=== PATIENT | male | born 1955 | race Caucasian/White ===

== ENCOUNTER 2022-05-30 05:50 | Day surgery (SDC) | payer MEDICARE, OTHER ==
[~2022-05-30 05:50] MED LIST: Sodium Chloride 0.9% 10 ML Syringe FLUSH SCH
[2022-05-30] MEDS ORDERED: fentaNYL 100 MCG/2 ML SDV IV ONE ×3 (05:51→06:59)
[2022-05-30] MEDS ORDERED: Midazolam 1 MG/ML 2 ML SDV IV ONE ×4 (05:51→07:05)
[2022-05-30] MEDS ORDERED: Sodium Chloride 0.9% 10 ML Syringe FLUSH PRN (06:00)
[2022-05-30] MEDS ORDERED: Dextrose 5%-0.45% NaCl 1,000 ML IV SCH (06:00)
[2022-05-30] MEDS ORDERED: Midazolam 1 MG/ML 2 ML SDV ONE (06:19)
[2022-05-30] MEDS ORDERED: fentaNYL 100 MCG/2 ML SDV ONE (06:20)
[2022-05-30 08:33] VITALS: PULSE 77
[2022-05-30 09:02] VITALS: BP 146/84
== END 2022-05-30 09:27 | disposition home or self-care (01) ==
LOC: DL.ENDO 05:50
PROVIDERS: ATTEND Internal Medicine Gastroenterology
DX: Z12.11 Encounter for screening for malignant neoplasm of colon (principal); D12.5 Benign neoplasm of sigmoid colon; K64.8 Other hemorrhoids; K57.30 Diverticulosis of large intestine without perforation or abscess without bleeding; E66.09 Other obesity due to excess calories; G47.33 Obstructive sleep apnea (adult) (pediatric); Z91.013 Allergy to seafood; Z91.041 Radiographic dye allergy status; Z98.890 Other specified postprocedural states; Z68.41 Body mass index [BMI] 40.0-44.9, adult
CPT/HCPCS: 45385; J2250; J3010; J7042

== ENCOUNTER 2022-06-06 06:21 | Emergency (ER) | payer MEDICARE, OTHER ==
[2022-06-06 06:39] VITALS: BP 189/96; PULSE 94
[2022-06-06] MEDS ORDERED: Albuterol/Ipratropium 3.0-0.5 MG/3 ML Neb Soln NEB ONE ×2 (06:40→08:00)
[2022-06-06] MEDS ORDERED: methylPREDNISolone Sodium Succinate 125 MG/2 ML SDV IVPUSH ONE (06:40)
[2022-06-06] MEDS ORDERED: Sodium Chloride 0.9% 10 ML Syringe FLUSH PRN (06:40)
[2022-06-06 07:35] LABS: CORONAVIRUS COVID-19 NAA NEGATIVE (NEGATIVE); RESPIRATORY SYNCYTIAL VIR NAA NEGATIVE (NEGATIVE)
== END 2022-06-06 08:23 | disposition home or self-care (01) ==
LOC: DL.ED 06:21
DX: J45.909 Unspecified asthma, uncomplicated (principal); G47.33 Obstructive sleep apnea (adult) (pediatric); E78.00 Pure hypercholesterolemia, unspecified; I10 Essential (primary) hypertension; I25.2 Old myocardial infarction; M19.90 Unspecified osteoarthritis, unspecified site; E66.9 Obesity, unspecified; Z68.37 Body mass index [BMI] 37.0-37.9, adult; Z91.013 Allergy to seafood; Z88.8 Allergy status to other drugs, medicaments and biological substances; Z79.82 Long term (current) use of aspirin; Z79.02 Long term (current) use of antithrombotics/antiplatelets; Z79.899 Other long term (current) drug therapy; Z20.822 Contact with and (suspected) exposure to COVID-19
CPT/HCPCS: 0241U; 36415; 71045; 80053; 83880; 84484; 85025; 85379; 86140; 93005; 96374; 99285-25; J2930; J7620-GY

== ENCOUNTER 2022-08-13 18:48 | Emergency (ER) | payer MEDICARE, OTHER ==
[2022-08-13] MEDS ORDERED: Albuterol/Ipratropium 3.0-0.5 MG/3 ML Neb Soln ONE (18:53)
[2022-08-13] MEDS ORDERED: methylPREDNISolone Sodium Succinate 125 MG/2 ML SDV IVPUSH ONE (18:55)
[2022-08-13] MEDS ORDERED: Magnesium Sulfate/Water 2 GM in Premix Bag 1 BAG IV ONE (18:55)
[2022-08-13] MEDS ORDERED: Albuterol/Ipratropium 3.0-0.5 MG/3 ML Neb Soln NEB ONE (18:55)
[2022-08-13] MEDS ORDERED: Magnesium Sulfate/Water 50 ML ONE (18:59)
[2022-08-13] MEDS ORDERED: methylPREDNISolone Sodium Succinate 125 MG/2 ML SDV ONE (18:59)
[2022-08-13] MEDS ORDERED: Sodium Chloride 0.9% 10 ML Syringe FLUSH PRN (19:04)
[2022-08-13 19:34] LABS: ANION GAP 15.4 mEq/L (7-13); CHLORIDE,CL 102 mmol/L (98-107); SODIUM,NA 139 mmol/L (136-145)
[2022-08-13 19:37] LABS: ESTIMATED GFR 74 mL/min (>=60)
[2022-08-13] MEDS ORDERED: fentaNYL 100 MCG/2 ML SDV IVPUSH ONE (20:14)
[2022-08-13] MEDS ORDERED: levETIRAcetam in NaCl (iso-os) 1,500 MG in Premix Bag 1 BAG IV ONE ×2 (20:27)
[2022-08-13 22:30] VITALS: BP 133/83; PULSE 92
== END 2022-08-13 21:31 ==
LOC: DL.ED 18:48
DX: S06.1XAA Traumatic cerebral edema with loss of consciousness status unknown, initial encounter (principal); S27.0XXA Traumatic pneumothorax, initial encounter; I25.10 Atherosclerotic heart disease of native coronary artery without angina pectoris; M19.90 Unspecified osteoarthritis, unspecified site; I25.2 Old myocardial infarction; E66.9 Obesity, unspecified; Z68.41 Body mass index [BMI] 40.0-44.9, adult; Z88.8 Allergy status to other drugs, medicaments and biological substances; Z91.013 Allergy to seafood; Z79.82 Long term (current) use of aspirin; Z79.02 Long term (current) use of antithrombotics/antiplatelets; Z79.899 Other long term (current) drug therapy; W19.XXXA Unspecified fall, initial encounter; Y92.009 Unspecified place in unspecified non-institutional (private) residence as the place of occurrence of the external cause
CPT/HCPCS: 36415; 70450; 71045; 71250; 72125; 80053; 80307; 83735; 83880; 84484; 85025; 85610; 86140; 93005; 93010; 94640; 96374; 96375; 99285; 99285-25; J1953; J2930; J3010; J3360; J3475; J3490; J7620-GY